=== PATIENT | female | born 1950 | race Caucasian/White ===

== ENCOUNTER 2020-08-02 11:15 | Outpatient (REF) | payer MEDICARE, SELFPAY ==
[2020-08-02 14:32] LABS: Alanine Aminotransferase 22 U/L (0-31); Albumin Level 4.3 g/dL (3.5-5.0); Alkaline Phosphatase 74 U/L (39-117); Anion Gap 16 (12-20); Aspartate Amino Transferase 17 U/L (5-31); Bilirubin Total 0.5 mg/dL (0.0-1.0); Blood Urea Nitrogen 15 mg/dL (9-16); Calcium 8.6 mg/dL (8.4-10.2); Carbon Dioxide 27 mmol/L (22-29); Chloride 103 mmol/L (96-108); Estimated Glomerular Filt Rate > 60; Glucose Random 163 mg/dL (60-115); Potassium 4.5 mmol/l (3.3-5.1); Sodium 141 mmol/L (135-145); Total Protein 6.8 g/dL (6.5-8.0)
[2020-08-02 15:25] LABS: Vitamin B12 665 pg/mL (200-900)
[2020-08-02 17:41] LABS: Estimated Average Glucose 177 mg/dL; Hemoglobin A1c % 7.8 %
== END 2020-08-02 11:16 | disposition home or self-care (01) ==
LOC: HO.HMGCLDS 11:15
PROVIDERS: PCP Internal Medicine; Visit Provider Internal Medicine
DX: E78.9 Disorder of lipoprotein metabolism, unspecified (principal); I10 Essential (primary) hypertension; E10.9 Type 1 diabetes mellitus without complications; E11.21 Type 2 diabetes mellitus with diabetic nephropathy; N28.9 Disorder of kidney and ureter, unspecified; G47.00 Insomnia, unspecified; F33.41 Major depressive disorder, recurrent, in partial remission
CPT/HCPCS: 80053; 82607; 83036

== ENCOUNTER 2020-09-11 09:17 | Outpatient (REF) | payer MEDICARE, SELFPAY ==
--- NOTE | 2020-09-11 09:24 | XR_ITS ---
EXAMINATION: XR HIP, RIGHT CLINICAL INFORMATION: Right hip pain. COMPARISON: 12/14/2018 TECHNIQUE: Two views of the right hip. Pelvis 1 view. FINDINGS: RIGHT HIP: Fnav-kt-uhlhehne right hip arthritis. No fracture or dislocation. Vascular calcification noted.. PELVIS: Agrl-ay-wsumypfa left hip arthritis. Mild bilateral SI joint arthritis and symphysis pubis arthritis. No acute pelvic fractures are seen. Prominent degenerative changes in the lower lumbar spine. Phleboliths in the pelvis. XR/XR hip RT w PEL1V IMPRESSION: Psvs-vs-bacrnbdj bilateral hip joint arthritis. Additional arthritic changes, as above. No acute osseous abnormality seen.
== END 2020-09-11 09:18 | disposition home or self-care (01) ==
LOC: HO.HOSX 09:17
PROVIDERS: PCP Internal Medicine; Visit Provider Orthopaedic Surgery
DX: M25.551 Pain in right hip (principal); M79.18 Myalgia, other site
CPT/HCPCS: 73502; 99212

== ENCOUNTER 2024-11-21 12:40 | Emergency (ER) | payer MEDICARE, SELFPAY ==
--- NOTE | ~2024-11-21 | CT_ITS ---
EXAMINATION: CT HEAD WITHOUT CONTRAST CLINICAL INFORMATION: Headache COMPARISON: None. Correlation made with MR brain 08/09/2019. TECHNIQUE: Contiguous axial imaging was performed from the skull base to vertex without intravenous administration of contrast. This CT examination was performed using dose optimization techniques as appropriate, variously including the following: *Automated exposure control *Adjustment of mA and/or kV according to patient size (this includes techniques or standardized protocols for targeted exams where dose is matched to indication/reason for exam; i.e. extremities or head) *Use of iterative reconstruction technique FINDINGS: There is no evidence of intracranial hemorrhage or extra-axial fluid collection. There is no mass effect, or edema. No CT evidence of acute territorial infarct. Ventricles, sulci, and cisterns are normal in size and configuration for patient age. No hydrocephalus. No midline shift. Negative hyperdense MCA sign. Negative insular ribbon sign. Patchy periventricular and deep white matter hypoattenuation is consistent with mild to moderate small vessel ischemic changes. 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 Normal pituitary. Mild atheromatous calcification of the bilateral carotid siphons. Globes and orbital contents image normally. There are bilateral lens implants. No extracranial soft tissue abnormalities. There is a right mastoid effusion. The paranasal sinuses, left mastoid air cells, and bilateral tympanic cavities are normally aerated. No suspicious bony abnormalities. There are no acute fractures evident. CT/CT head/brain wo IV con IMPRESSION: 1. No acute intracranial abnormality. 2. [id number] chronic white matter microvascular ischemic changes. 3. Right mastoid effusion. No evidence of middle ear involvement. Electronically signed by: Farzad Dillon MD 11/21/2024 03:04 PM [facility]
[2024-11-21 12:56] VITALS: BP 154/82; PULSE 89; O2SAT 98
[2024-11-21 12:57] VITALS: BP 148/67; PULSE 84; RESP 18; TEMP 36.9; O2SAT 98; BMI 28.0
--- NOTE | 2024-11-21 13:30 | ED_ITS ---
HPI - General Adult General Chief complaint: General Medical Stated complaint: PT STS FEELS WEIRD SOUNDS LIKE PEOPLE DRUMMING PER Time Seen by Provider: 11/21/24 13:33 Source: patient Limitations: no limitations History of Present Illness HPI narrative: This is a alexia 74 years old the patient presented to the emergency department complaining of ?hearing drumming in the head , she denies headache, she states she had the same problem before about 1 year ago. She has a history of diabetes denies any fever any vomiting. Symptoms lasted for about 5 minutes at this point she is back to baseline Onset (ago): hour(s) (2) Location: head Radiation: non-radiation Severity: moderate Quality: burning Pain Consistency: constant Relieving factors: none Exacerbating factors: none Related Data Home Medications ?Medication ?Instructions ?Recorded ?Confirmed blood sugar diagnostic (OneTouch #10 ea 08/02/20 08/18/20 Ultra Blue Test Strip) cyanocobalamin (vitamin B-12) 1,000 mcg PO DAILY 08/02/20 08/18/20 1,000 mcg tablet timolol 0.25 % eye drops 1 drp ophthalmic (eye) DAILY 08/02/20 08/18/20 donepezil 5 mg tablet 5 mg PO DAILY 08/17/20 08/18/20 Previous Rx's ?Medication ?Instructions ?Recorded zolpidem 10 mg tablet 10 mg PO BEDTIME PRN insomnia 30 09/18/20 days #30 tabs celecoxib 100 mg capsule 100 mg PO DAILY #90 caps 11/09/20 bupropion HCl 200 mg tablet,12 hr 200 mg PO QAM #90 tabs 11/28/20 sustained-release simvastatin 10 mg tablet 10 mg PO BEDTIME #90 tabs 11/28/20 tizanidine 2 mg tablet 2 mg PO BEDTIME PRN for muscle 12/25/20 spasm #30 tabs irbesartan 300 1 tab PO DAILY 30 days #30 tabs 01/03/21 mg-hydrochlorothiazide 12.5 mg tablet insulin glargine 100 unit/mL (3 50 unit (0.5 mL) subcut QPM 90 01/11/21 mL) subcutaneous pen (Lantus days #45 mL Solostar U-100 Insulin) metformin 1,000 mg tablet 1,000 mg PO BID #180 tabs 03/14/21 Allergies Allergy/AdvReac Type Severity Reaction Status Date / Time Sulfa (Sulfonamide Allergy Unknown HIVES Verified 11/21/24 13:08 Antibiotics) [SULFA (SULFONAMIDE ANTIBIOTICS)] Review of Systems 2 Constitutional: Constitutional: Reports no additional constitutional complaints Cardiovascular: Cardiovascular: Reports no additional cardiovascular complaints [facility] Past Medical History Attestation statement: The following information was validated with the patient. 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 Mother No problems noted. Son No problems noted. Son No problems noted. Social History Social History Alcohol intake: never Current occupational status: retired Current occupation: Right Handed Physical Exam ED Vital Signs: Vital Signs - 24 hr 11/21/24 12:57 11/21/24 14:40 11/21/24 15:58 Temperature 98.5 F 97.1 F 97.1 F Pulse Rate 84 82 82 Respiratory Rate 18 14 14 Blood Pressure 148/67 H 139/68 139/68 Pulse Oximetry 98 99 99 Oxygen Delivery Method Room Air Room Air Room Air BMI result Body Mass Index 28.0 No acute distress looks well Const General: cooperative, comfortable, no acute distress, well developed, awake and Physically active Nutritional Appearance: average body habitus Orientation/consciousness: patient oriented x3 Limitations: no limitations HENMT Head: Yes normal to inspection General nose exam: Normal external nose present Face and sinus: Yes normal facial exam Teeth and gingiva: dentition normal Neck Neck: Yes normal visual inspection Chest Chest palpation & inspection: normal inspection of the chest Resp Effort & Inspection: normal respiratory effort Auscultation: clear to auscultation bilaterally Cardio Jugular venous distension: no JVD Rate: regular rate Rhythm: regular rhythm GI Inspection: Yes normal to inspection Palpation (GI): Soft to palpation, not firm, nontender and no guarding Auscultation: normal bowel sounds Skin General skin exam: no rashes or lesions noted, elasticity normal and turgor normal Lesions: no lesions Rashes: no rashes Neuro General: patient oriented x3 Cranial nerves: Yes CN's II-XII intact bilaterally Motor exam (neuro): 5/5 motor strength present throughout Psych Appearance: grossly normal Course Reevaluation(s) Reevaluation #1: Patient is feeling better she is completely asymptomatic workup negative I think she can be discharged home she is comfortable with the plan I spoke also with the Time: 15:51 Medical Decision Making Medical Decision Making [facility] Narrative: Patient presented to the emergency department complaining hearing drum in the head symptoms are now gone we will check labs we will do imaging of the head Differential Diagnosis Differential Diagnoses: The differential diagnosis associated with the presentation includes Complicated migraine/headache/brain tumor Admission/Observation Consideration of admission/observation: Escalation of care including admission/observation considered Lab Data [facility] Lab Attestation statement: I reviewed the patient's lab results. 11/21/24 13:57 11/21/24 13:57 Labs: Lab Results 11/21/24 Range/Units 13:57 WBC 9.5 (4.8-10.8) X10*3/uL RBC 4.50 (4.20-5.50) X10*6/uL Hgb 14.4 (12.0-16.0) g/dl Hct 40.6 (37.0-47.0) % MCV 90.2 (80.0-98.0) fL MCH 32.0 (27.0-33.0) pg MCHC 35.5 H (31.0-35.0) g/dl RDW 11.9 (11.0-16.0) % Plt Count 293 (160-400) X10*3/uL MPV 9.0 L (9.4-12.3) fL Immature Gran % (Auto) 0.3 (0.0-0.4) % Neut % (Auto) 77.0 H (45-73) % Lymph % (Auto) 16.3 L (20-40) % [place] % (Auto) 4.7 (2-11) % Eos % (Auto) 1.3 (0-4) % Baso % (Auto) 0.4 (0-2) % Lymph # (Auto) 1.6 (1.2-4.9) X10*3/uL [place] # (Auto) 0.5 (0.1-1.2) X10*3/uL Eos # (Auto) 0.1 (0.0-0.4) X10*3/uL Baso # (Auto) 0.0 (0.0-0.2) X10*3/uL Abs Immat Gran (auto) 0.03 (0.00-0.03) X10*3/uL Absolute Neuts (auto) 7.3 (2.0-8.3) x10*3/uL Absolute Nucleated RBC 0.000 (0.0-0.012) X10*3/uL Nucleated RBC % (auto) 0.0 (0.0-0.2) /100WBC Sodium 141 (135-145) mmol/L Potassium 3.6 (3.3-5.1) mmol/L Chloride 109 H (96-108) mmol/L Carbon Dioxide 23 (22-29) mmol/L Anion Gap 13 (12-20) BUN 14 (9-16) mg/dL Creatinine 0.75 (0.5-1.4) mg/dL Estim Creat Clear Calc 56.9 Estimated GFR > 60 Random Glucose 101 (60-115) mg/dL Calcium 9.2 D (8.4-10.2) mg/dL Total Bilirubin 0.8 (0.0-1.0) mg/dL AST 25 (5-31) U/L ALT 36 H (0-31) U/L Alkaline Phosphatase 99 (39-117) U/L Troponin I High Sens 4.1 (<3.5-17.0) ng/L Total Protein 7.5 (6.5-8.0) g/dL Albumin 4.2 (3.5-5.0) g/dL Independent Interpretation I performed an independent interpretation of an: CT Scan Interpretation: Globes and orbital contents image normally. There are bilateral lens implants. No extracranial soft tissue abnormalities. There is a right mastoid effusion. The paranasal sinuses, left mastoid air cells, and bilateral tympanic cavities are normally aerated. No suspicious bony abnormalities. There are no acute fractures evident. CT/CT head/brain wo IV con IMPRESSION: 1. No acute intracranial abnormality. 2. Ofhw-zy-hjbvmwrw chronic white matter microvascular ischemic changes. 3. Right mastoid effusion. No evidence of middle ear involvement. Electronically signed by: Farzad Dillon MD 11/21/2024 03:04 PM [facility] Dictated By: Farzad Dillon MD Signed By: <Electronically sign Radiology Impression Discussion of test interpretation with radiology: I have reviewed the radiologist's reading. Discharge Plan Discharge Clinical Impression: Auditory disturbance Patient Disposition: Home, Self-Care Additional Instructions: Follow-up with your primary care physician, return to the emergency room if you worse any concern, you CT scan of the head was negative your Prescriptions: No Action zolpidem 10 mg tablet 10 mg PO BEDTIME PRN (Reason: insomnia) 30 Days Qty: 30 1RF celecoxib 100 mg capsule 100 mg PO DAILY Qty: 90 0RF bupropion HCl 200 mg tablet sustained-release 12 hr 200 mg PO QAM Qty: 90 0RF simvastatin 10 mg tablet 10 mg PO BEDTIME Qty: 90 0RF tizanidine 2 mg tablet 2 mg PO BEDTIME PRN (Reason: for muscle spasm) Qty: 30 0RF irbesartan-hydrochlorothiazide 300-12.5 mg tablet 1 tab PO DAILY 30 Days Qty: 30 0RF Lantus Solostar U-100 Insulin 100 unit/mL (3 mL) insulin pen 50 unit subcut QPM 90 Days Qty: 45 0RF Rx Instructions: inject 50 units every evening metformin 1,000 mg tablet 1,000 mg PO BID Qty: 180 0RF timolol 0.25 % drops 1 drp ophthalmic (eye) DAILY cyanocobalamin (vitamin B-12) 1,000 mcg tablet 1,000 mcg PO DAILY (DME) OneTouch Ultra Blue Test Strip Strip See Rx Instructions .ROUTE .MEDSUPPLY Qty: 10 Rx Instructions: As directed donepezil 5 mg tablet 5 mg PO DAILY Referrals: Anne Tanner MD [Primary Care Provider] - 2 days Interventions: ED Discharge Assessment Last Done: 11/21/24 15:58 Discharge Date/Time: 11/21/24 15:58 Print Language: Brazilian
--- NOTE | 2024-11-21 13:34 | ECG_ITS ---
Test Reason : chest pain Blood Pressure : */* mmHG Vent. Rate : 80 BPM Atrial Rate : 80 BPM P-R Int : 164 ms QRS Dur : 82 ms QT Int : 402 ms P-R-T Axes : 67 57 65 degrees QTcB Int : 463 ms Normal sinus rhythm Nonspecific T wave abnormality Abnormal ECG When compared with ECG of 29-Jun-2017 11:17, No significant change was found Referred By: William Aguilera Electronically Signed By: DIEGO ALMONTE
[2024-11-21 14:03] LABS: MANUAL DIFF FLAG NO
[2024-11-21 14:05] LABS: Basophils Percent Auto 0.4 % (0-2); Eosinophils Absolute Auto 0.1 X10*3/uL (0.0-0.4); Eosinophils Percent Auto 1.3 % (0-4); Hematocrit 40.6 % (37.0-47.0); Hemoglobin 14.4 g/dl (12.0-16.0); Imm Gran Abs Auto 0.03 X10*3/uL (0.00-0.03); Imm Gran Pct Auto 0.3 % (0.0-0.4); Lymphocytes Absolute Auto 1.6 X10*3/uL (1.2-4.9); Lymphocytes Percent Auto 16.3 % (20-40); Mean Corpuscular HGB Conc 35.5 g/dl (31.0-35.0); Mean Corpuscular Volume 90.2 fL (80.0-98.0); Monocytes Absolute Auto 0.5 X10*3/uL (0.1-1.2); Monocytes Percent Auto 4.7 % (2-11); Neutrophils Absolute Auto 7.3 x10*3/uL (2.0-8.3); Platelet Count 293 X10*3/uL (160-400); Red Cell Distribution Width 11.9 % (11.0-16.0); White Blood Count 9.5 X10*3/uL (4.8-10.8)
--- NOTE | 2024-11-21 14:08 | PC.NURSE ---
Dr. Aguilera at bedside speaking with patient. Labs drawn and sent for analysis. Awaiting results.
[2024-11-21 14:21] LABS: Alanine Aminotransferase 36 U/L (0-31); Albumin Level 4.2 g/dL (3.5-5.0); Alkaline Phosphatase 99 U/L (39-117); Anion Gap 13 (12-20); Aspartate Amino Transferase 25 U/L (5-31); Bilirubin Total 0.8 mg/dL (0.0-1.0); Blood Urea Nitrogen 14 mg/dL (9-16); Calcium 9.2 mg/dL (8.4-10.2); Carbon Dioxide 23 mmol/L (22-29); Chloride 109 mmol/L (96-108); Creatinine Clr Calc Pharmacy 56.9; Estimated Glomerular Filt Rate > 60; Glucose Random 101 mg/dL (60-115); Potassium 3.6 mmol/L (3.3-5.1); Sodium 141 mmol/L (135-145); Total Protein 7.5 g/dL (6.5-8.0)
[2024-11-21 14:25] LABS: Troponin-I High Sensitivity 4.1 ng/L (<3.5-17.0)
[2024-11-21 14:40] VITALS: BP 139/68; PULSE 82; RESP 14; TEMP 36.2; O2SAT 99
--- NOTE | 2024-11-21 14:40 | PC.NURSE ---
Patient returned from CT scan. Awaiting results. Family member at bedside.
--- OUTSIDE RECORDS SUMMARY | 2024-11-21 15:09 | XMS_ITS | Encounter Summary ---
Author Organization [employer] Address [address] [place] [address] Care Team Providers Care Tail Board Man Name Role Phone Anne Tanner MD Primary Care Provider [phone] Encounter Details Date Type Department Care Team (Late st Contact Info) Description 11/21/2024 Orders Only GENERIC EXTERNAL DATA DEPARTMENT Provider, Generic External Data Social History Tobacco Use Types Packs/Day Years Used Date Smoking Tobacco: Never Smokeless Tobacco: Never Alcohol Use Standard Drinks/Week Comments Never 0 (1 standard drink = 0.6 oz pur e alcohol) Depression Answer Date Recorded Patient Health Questionnaire-9 Score 12 06/05/2024 Patient Health Questionnaire-9 Score 12 06/05/2024 Last PHQ-9: Questionnaire Data Not on file 0 06/05/2024 Housing Stability Answer Date Recorded What is your housing situation today? I have hayley interiano 11/10/[address] you li ve. Do you have problems with any of the following? None of the above 11/10/2024 Food Insecurity Answer Date Recorded Within the past 12 months, y ou worried that your food would run out before you got money to buy more: Never True 11/10/2024 Within the past 12 months,th e food you bought just didn't last and you didn't have enough money to get more: Never True Transportation Answer Date Recorded In the past 12 months, has l ack of transportation kept you from medical appts, meetings, work or from getting things needed for daily living? No 11/10/2024 Utilities Answer Date Recorded In the past 12 months, has t he electric, gas, oil or water company threatened to shut off services in your home? No 11/10/2024 Depression Answer Date Recorded Patient Health Questionnaire-2 Score 4 06/05/2024 Internet Access Answer Date Recorded Internet Access Q1 Yes 11/10/2024 Internet Access Q2 Not on file 11/10/2024 Comments No Sex and Gender Information Value Date Recorded Sex Assigned at Female 07/28/2022 10:37 AM EDT Legal Sex Female 10:37 AM EDT Gender Identity Female 07/28/2022 10:37 AM EDT Sexual Orientation Straight 07/28/2022 10 :37 AM EDT documented as of this encounter Plan of Treatment Not on file documented as of this encounter Procedures Procedure Name Priority Date/Time Associated Diagnosis Comments CT HEAD WO CONTRAST Routine 11/21/2024 2:33 PM EST HIGH SENSITIVITY TROPONIN I Routine 11/21/2024 1:57 PM EST CBC WITH AUTO DIFFERENTIAL Routine 11/21/2024 1:57 PM EST COMPREHENSIVE METABOLIC PANEL Routine 11/21/2024 1:57 PM EST documented in this encounter Results * CT Head w/o Contrast (11/21/2024 2:33 PM EST) Anatomical Region Laterality Modality Head, Neck Computed Tomogra phy 11/21/2024 2:33 PM EST Narrative 11/21/2024 3:07 PM EST ? [facility] ?[address] ?[place] [address] ? CT Scan Report ? Signed ? Patient: Ty,Sofia ?MR#: [id number] ?? 491 ? : 1950 ?Acct:[id number] ? Age/Sex: 74 / F ?ADM Date: 02/24/25 ? Loc: HO.ED ? Attending Dr: ? Ordering Physician: Corvi,William MD ?? Date of Service: 11/21/24 ?? Procedure(s): CT head/brain wo IV con ?? Accession Number(s): [id number] ? cc: Anne Tanner MD; William Aguilera MD ? Report Number: ?? [id number]: Total DLP = ??652.00 mGy-cm ?? EXAMINATION: ?? CT HEAD WITHOUT CONTRAST ? CLINICAL INFORMATION: ?? Headache ? COMPARISON: ?? None. Correlation made with MR brain 08/09/2019. ? TECHNIQUE: ?? Contiguous axial imaging was performed from the skull base to vertex ?? without intravenous administration of contrast. ? This CT examination was performed using dose optimization techniques as ?? appropriate, variously including the following: ?? *Automated exposure control ?? *Adjustment of mA and/or kV according to patient size (this includes ?? techniques or standardized protocols for targeted exams where dose is ?? matched to indication/reason for exam; i.e. extremities or head) ?? *Use of iterative reconstruction technique ? FINDINGS: ?? There is no evidence of intracranial hemorrhage or extra-axial fluid ?? collection. ?? There is no mass effect, or edema. No CT evidence of acute territorial ?? infarct. ?? Ventricles, sulci, and cisterns are normal in size and configuration ?? for patient age. No hydrocephalus. No midline shift. ?? Negative hyperdense MCA sign. Negative insular ribbon sign. ? Patchy periventricular and deep white matter hypoattenuation is ?? consistent with mild to moderate small vessel ischemic changes. ?? 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 ?? Normal pituitary. ?? Mild atheromatous calcification of the bilateral carotid siphons. ? Globes and orbital contents image normally. There are bilateral lens ?? implants. ?? No extracranial soft tissue abnormalities. ? There is a right mastoid effusion. ?? The paranasal sinuses, left mastoid air cells, and bilateral tympanic ?? cavities are normally aerated. ?? No suspicious bony abnormalities. There are no acute fractures evident. ? CT/CT head/brain wo IV con ?? IMPRESSION: ?? 1. No acute intracranial abnormality. ?? 2. Cior-sx-xptjnexw chronic white matter microvascular ischemic changes. ?? 3. Right mastoid effusion. No evidence of middle ear involvement. ? Electronically signed by: ??Farzad Dillon MD ??11/21/2024 03:04 PM EST RP ? Dictated By: ?Farzad Dillon MD ? Signed By: ?<Electronically signed by Farzad Dillon MD in OV> ?11/21/24 1504 ? DD/ 1433 ? TD/TT: 11/21/24 1453 ? Decorating Supervisor: ? Procedure Note Donotuseinterpreter, Image - 11/21/[address] [address] [address] Scan Report Signed Patient: Kalia Ty#: [id number] : 9Acct:[id number] Age/Sex: 74 / FADM Date: 11/21/24 Loc: HO.ED Attending Dr: Ordering Physician: William Aguilera MD Date of Service: 11/21/24 Procedure(s): CT head/brain wo IV con Accession Number(s): [id number] cc: Anne Tanner MD; William Aguilera MD Report Number: [id number]: Total DLP = 652.00 mGy-cm EXAMINATION: CT HEAD WITHOUT CONTRAST CLINICAL INFORMATION: Headache COMPARISON: None. Correlation made with MR brain 08/09/2019. TECHNIQUE: Contiguous axial imaging was performed from the skull base to vertex without intravenous administration of contrast. This CT examination was performed using dose optimization techniques as appropriate, variously including the following: *Automated exposure control *Adjustment of mA and/or kV according to patient size (this includes techniques or standardized protocols for targeted exams where dose is matched to indication/reason for exam; i.e. extremities or head) *Use of iterative reconstruction technique FINDINGS: There is no evidence of intracranial hemorrhage or extra-axial fluid collection. There is no mass effect, or edema. No CT evidence of acute territorial infarct. Ventricles, sulci, and cisterns are normal in size and configuration for patient age. No hydrocephalus. No midline shift. Negative hyperdense MCA sign. Negative insular ribbon sign. Patchy periventricular and deep white matter hypoattenuation is consistent with mild to moderate small vessel ischemic changes. 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 Normal pituitary. Mild atheromatous calcification of the bilateral carotid siphons. Globes and orbital contents image normally. There are bilateral lens implants. No extracranial soft tissue abnormalities. There is a right mastoid effusion. The paranasal sinuses, left mastoid air cells, and bilateral tympanic cavities are normally aerated. No suspicious bony abnormalities. There are no acute fractures evident. CT/CT head/brain wo IV con IMPRESSION: 1. No acute intracranial abnormality. 2. Ektw-ro-qkvzqqzl chronic white matter microvascular ischemic changes. 3. Right mastoid effusion. No evidence of middle ear involvement. Electronically signed by: Farzad Dillon MD 11/21/2024 03:04 PM EST Dictated By: Farzad Dillon MD Signed By: <Electronically signed by Farzad Dillon MD in OV> 11/21/24 1504 DD/ 1433 TD/TT: 11/21/24 1453 Decorating Supervisor: [facility] External Provider IMG CT PROCEDURES Final Result * High Sensitivity Troponin I (11/21/2024 1:57 PM EST) [facility] TROPONIN I HIGH SENSITIVITY 4.1 <3.5 - 17.0 ng/L [facility] Comment:The Dey high sens itivity Troponin-I results should beused in conjunction with other diagnostic information suchas ECG, clinical observations and information, and patientsymptoms to aid in the diagnosis of MD. 11/21/2024 1:57 PM EST 11/21/2024 2:01 PM EST Generic External Data Provider LAB BLOOD ORDERAB LES Final Result [facility] [place] [address] [phone] * (ABNORMAL) Comprehensive Metabolic Panel (11/21/2024 1:57 PM EST) [facility] Sodium 141 135 - 145 mmol/L [facility] Potassium 3.6 3.3 - 5.1 mmol/L [facility] Chloride 109(H) 96 - 108 mmol/L [facility] Carbon Dioxide 23 22 - 29 mmol/L [facility] Anion Gap 13 12 - 20 [facility] Urea Nitrogen (BUN) 14 9 - 16 mg/dL [facility] Creatinine, Serum 0.75 0.5 - 1.4 mg/dL [facility] Creatinine Clr Calc Pharmacy 56.9 [facility] Comment:Provided height and weight: 154.94 cm,67.3 kg.eGFR (calculated from the MDRD study equation) and eCrCl(calculated from the Cockcroft-Gault equation) are based ondifferent parameters and may not yield comparable results.If eCrCl result is absurd, please check patient'sheight/weight. Estimated Glomerular Filt Rate >60 [facility] Comment:Chronic Kidney Disea se: Estimated GFR < 60 mL/min/1.06l0Efkkel Kidney Disease: Estimated GFR < 15 mL/min/1.73m2 Glucose 101 60 - 115 mg/dL [facility] Calcium 9.2 8.4 - 10.2 mg/dL [facility] Bilirubin, Total 0.8 0.0 - 1.0 mg/dL [facility] Aspartate Amino Transferase 25 5 - 31 U/L [facility] Alanine Aminotransferase 36(H) 0 - 31 U/L [facility] Total Protein 7.5 6.5 - 8.0 g/dL [facility] Albumin Level 4.2 3.5 - 5.0 g/dL [facility] Alkaline Phosphatase 99 39 - 117 U/L [facility] 11/21/2024 1:57 PM EST 11/21/2024 2:01 PM EST us Generic External Data Provider LAB BLOOD ORDERAB LES Final Result [facility] [address] [place], [place] [id number] [phone] * (ABNORMAL) CBC auto differential (11/21/2024 1:57 PM EST) White Blood Count 9.5 4.8 - 10.8 X10*3/uL [facility] Red Blood Count 4.50 4.20 - 5.50 X10*6/uL [facility] Hemoglobin 14.4 12.0 - 16.0 g/dl [facility] Hematocrit 40.6 37.0 - 47.0 % [facility] Mean Corpuscular Volume 90.2 80.0 - 98.0 fL [facility] Mean Corpuscular Hemoglobin 32.0 27.0 - 33.0 pg [facility] Mean Corpuscular HGB Conc 35.5(H) 31.0 - 35.0 g/dl [facility] Red Cell Distribution Width 11.9 11.0 - 16.0 % [facility] Platelet Count 293 160 - 400 X10*3/uL [facility] Mean Platelet Volume 9.0(L) 9.4 - 12.3 fL [facility] Neutrophils Percent Auto 77.0(H) 45 - 73 % [facility] Imm Gran Pct Auto 0.3 0.0 - 0.4 % [facility] Lymphocytes Percent Auto 16.3(L) 20 - 40 % [facility] Monocytes Percent Auto 4.7 2 - 11 % [facility] Eosinophils Percent Auto 1.3 0 - 4 % [facility] Basophils Percent Auto 0.4 0 - 2 % [facility] NRBC Pct Auto 0.0 0.0 - 0.2 /100WBC [facility] Neutrophils Absolute Auto 7.3 2.0 - 8.3 x10*3/uL [facility] Imm Gran Abs Auto 0.03 0.00 - 0.03 X10*3/uL [facility] Lymphocytes Absolute Auto 1.6 1.2 - 4.9 X10*3/uL [facility] Monocytes Absolute Auto 0.5 0.1 - 1.2 X10*3/uL [facility] Eosinophils Absolute Auto 0.1 0.0 - 0.4 X10*3/uL [facility] Basophils Absolute Auto 0.0 0.0 - 0.2 X10*3/uL [facility] NRBC Abs Auto 0.000 0.0 - 0.012 X10*3/uL [facility] 11/21/2024 1:57 PM EST 11/21/2024 2:01 PM EST us Generic External Data Provider LAB BLOOD ORDERAB LES Final Result Performing Organization Address City/State/[facility] Co de Phone Number [facility] [address] [place] [address] [phone] documented in this encounter Visit Diagnoses Not on filedocumented in this encounter Additional Health Concerns Assessment Noted Time PHQ-9 Depression Total Score: 12 024 11:39 AM EDT documented as of this encounter Care Teams Tail Board Man Relationship Specialty Start Date End Date Anne Tanner MD [address] [place] [phone] PCP - General Internal Medicine 11/27/20 documented as of this encounter
--- OUTSIDE RECORDS SUMMARY | 2024-11-21 15:09 | XMS_ITS | Encounter Summary ---
Author Organization [employer] Address [address] [facility] 7t [place] [address] Care Team Providers Care Ceiling Installer Name Role Phone Anne Tanner MD Primary Care Provider [phone] Reason for Visit * Reason Comments Med Refill Encounter Details Date Type Department Care Team ([facility] st Contact Info) Description 07/16/2023 Refill [facility] MED[facility]INE [address] [place], [place] [phone] Anne Tanner MD [address] [address] [place], [place] [phone] Social History Tobacco Use Types Packs/Day Years Used Date Smoking Tobacco: Never Smokeless Tobacco: Never Alcohol Use Standard Drinks/Week Comments Never 0 (1 standard drink = 0.6 oz pur e alcohol) Depression Answer Date Recorded Patient Health Questionnaire-9 Score 12 11/20/2022 Housing Stability Answer Date Recorded What is your housing situation today? I have hayley interiano 07/16/[address] you li ve. Do you have problems with any of the following? None of the above 07/16/2023 Food Insecurity Answer Date Recorded Within the past 12 months, y ou worried that your food would run out before you got money to buy more: Never True 07/16/2023 Within the past 12 months,th e food you bought just didn't last and you didn't have enough money to get more: Never True Transportation Answer Date Recorded In the past 12 months, has l ack of transportation kept you from medical appts, meetings, work or from getting things needed for daily living? No 07/16/2023 Utilities Answer Date Recorded In the past 12 months, has t he electric, gas, oil or water company threatened to shut off services in your home? No 07/16/2023 Depression Answer Date Recorded Patient Health Questionnaire-2 Score 6 11/20/2022 Comments Unknown Sex and Gender Information Value Date Recorded Sex Assigned at Female 07/28/2022 10:37 AM EDT Legal Sex Female 10:37 AM EDT Gender Identity Female 07/28/2022 10:37 AM EDT Sexual Orientation Straight 07/28/2022 10 :37 AM EDT documented as of this encounter Plan of Treatment Not on file documented as of this encounter Visit Diagnoses Not on filedocumented in this encounter Additional Health Concerns Assessment Noted Time PHQ-9 Depression Total Score: 12 023 11:34 AM EST documented as of this encounter Care Teams Ceiling Installer Relationship Specialty Start Date End Date Anne Tanner MD [address] [place] [address] PCP - General Internal Medicine 11/27/20 documented as of this encounter
--- OUTSIDE RECORDS SUMMARY | 2024-11-21 15:09 | XMS_ITS | Encounter Summary ---
Author Organization [employer] Address [address] [facility] 7t [place] [address] Care Team Providers Care Buyer Agent Name Role Phone Anne Tanner MD Primary Care Provider [phone] Encounter Details Date Type Department Care Team ([facility] st Contact Info) Description 05/06/2023 Orders Only [facility] CHC MED & PEDS [address] [place], [place] [phone] Anne Tanner MD [address] [place], [place] [phone] Type 2 diabetes mellitus without complication, without long-term current use of insulin ([facility]) (Primary Dx); Candidiasis Social History Tobacco Use Types Packs/Day Years Used Date Smoking Tobacco: Never Smokeless Tobacco: Never Alcohol Use Standard Drinks/Week Comments Never 0 (1 standard drink = 0.6 oz pur e alcohol) Depression Answer Date Recorded Patient Health Questionnaire-9 Score 12 11/20/2022 Depression Answer Date Recorded Patient Health Questionnaire-2 Score 6 11/20/2022 Comments Unknown Sex and Gender Information Value Date Recorded Sex Assigned at Female 07/28/2022 10:37 AM EDT Legal Sex Female 10:37 AM EDT Gender Identity Female 07/28/2022 10:37 AM EDT Sexual Orientation Straight 07/28/2022 10 :37 AM EDT COVID-19 Exposure Response Date Recorded In the last 10 days, have yo u been in contact with someone who was confirmed or suspected to have Coronavirus/COVID-19? No / Unsure 04/07/2023 9:59 AM EDT documented as of this encounter Plan of Treatment Not on file documented as of this encounter Visit Diagnoses Diagnosis Type 2 diabetes mellitus without complication, without long-term current use of insulin ([facility])- Primary Candidiasis documented in this encounter Additional Health Concerns Assessment Noted Time PHQ-9 Depression Total Score: 12 023 11:34 AM EST documented as of this encounter Care Teams Buyer Agent Relationship Specialty Start Date End Date Anne Tanner MD [address] [place] [address] PCP - General Internal Medicine 11/27/20 documented as of this encounter
--- OUTSIDE RECORDS SUMMARY | 2024-11-21 15:09 | XMS_ITS | Encounter Summary ---
Author Organization [employer] Address [address] [facility] 7t [place] [address] Care Team Providers Care Career Development Counselor Name Role Phone Anne Tanner MD Primary Care Provider [phone] Reason for Referral * Consultation (Routine) - Closed Specialty Diagnoses / Procedures Referred By Dylon juarez Referred To Contact Physical Therapy Diagnoses Localized osteoarthritis of right knee Anne Tanner MD [address] [place] [address] Phone: tel: fax: Physical Therapy, AT [address] [place] [address] Dr Freeman Terence [place] Phone: tel: fax: Referral ID Status Reason Start Date Expiration Date V isits Requested Visits Authorized [id number] Closed Specialty Services Required 11/10/2024 11/10/2025 1 1 Reason for Visit * Reason Comments Hypertension Diabetes Hyperlipidemia Encounter Details Date Type Department Care Team (Latest Contact Info) Description 11/10/2024 9:00 AM EST Office Visit [facility] CHC MED & PEDS [address] [place], [place] [phone] Anne Tanner MD [address] [place] [address] Localized osteoarthritis of right knee (Primary Dx); Type 2 diabetes mellitus without complication, without long-term current use of insulin (CMS/HCC); Type 2 diabetes mellitus without complication, without long-term current use of insulin (CMS/HCC); Closed trimalleolar fracture of right ankle with routine healing Social History Tobacco Use Types Packs/Day Years [...] is your housing situation today? I have haylye interiano 11/10/[address] you [...] AM EDT documented as of this encounter Last Filed Vital Signs Vital Sign Reading Time Taken Comments Blood Pressure 149/87 11/10/2024 9:30 AM EST Pulse 85 11/10/2024 9:30 AM EST Temperature 36.7 ??C (98.1 ??F) 11/10/2024 9:12 AM ES T Respiratory Rate 12 11/10/2024 9:12 AM EST Oxygen Saturation 98% 11/10/2024 9:12 AM EST Inhaled Oxygen Concentration - - Weight 66.7 kg (147 lb) 11/10/2024 9:12 AM EST Height 154.9 cm (5' 1 ) 11/10/2024 9:12 AM EST Body Mass Index 27.78 11/10/2024 9:12 AM EST documented in this encounter Progress Notes * Anne Tanner MD - 11/10/2024 9:00 AM EST Subjective Patient ID: Sofia Ty is a 74 y.o. female who presents for Hypertension, Diabetes, and Hyperlipidemia. HPI History of a fall in July 2024 downstairs at a wedding. This fall resulted in a right trimalleolar fracture dislocation. She is status post an open reduction and internal fixation of her fracturewithout posterior fixation, open reduction and internal fixation of the syndesmosis. Patient is now doing well. Currently receiving physical therapy. Denies any pain of the right ankle. Able to ambulate on it. Denies any episode of hypoglycemia since the last office visit. Compliant to her medication. History of hypertension. Blood pressure is well-controlled at home. No reported side effect from the current medication. Left Patient Active Problem List Diagnosis Depressive disorder Hypercholesterolemia Hypertensive disorder Insomnia Mild dementia ([facility]) Osteoarthritis Type 2 diabetes mellitus ([facility]) Current Outpatient Medications on File Prior to Visit Medication Sig Dispense Refill acetaminophen (Tylenol 8 Hour) 650 MG ER tablet Take 1 tablet by mouth if needed in the morning, atnoon, and at bedtime. Alcohol Swabs (Alcohol Prep) 70 % pads USE ONE THREE TIMES DAILY 100 each 11 aspirin 81 MG EC tablet Take 1 tablet by mouth 1 (one) time each day. Blood Glucose Monitoring Suppl (ONE TOUCH ULTRA 2) w/Device kit USE DIRECTED 1 kit 11 buPROPion SR (Wellbutrin SR) 200 MG 12 hr tablet TAKE ONE TABLET EVERY MORNING 30 tablet 11 calcium carbonate (Os-Aristeo) 1250 (500 Ca) MG tablet Take 1 tablet by mouth in the morning and at bedtime. celecoxib (CeleBREX) 200 MG capsule TAKE ONE CAPSULE EVERY MORNING 30 capsule 11 Cyanocobalamin [address] 1 tablet under the tongue 1 (one) time each day. donepezil (Aricept) 5 MG tablet TAKE ONE TABLET EVERY EVENING 30 tablet 11 fluconazole (Diflucan) 150 MG tablet Take 1 tablet (150 mg) by mouth 1 (one) time per week. 1 pill on day 1 and on pill on day 7 2 tablet 0 glipiZIDE (Glucotrol) 5 MG tablet TAKE THREE TO FOUR TABLETS ONCE DAILY BEFORE SUPPER AND ONE-HALF TABLET BEFORE SNACK 135 tablet 11 insulin glargine (Lantus SoloStar) 100 UNIT/ML pen INJECT 40 UNITS SUBCUTANEOUSLY AT BEDTIME 15 mL 11 irbesartan-hydroCHLOROthiazide (Avalide) 300-12.5 MG tablet TAKE ONE TABLET EVERY MORNING 30 [id number] Lancets (HeavyTouch Delica Plus [id number]) misc TEST BLOOD SUGAR TWICE DAILY 100 each 11 latanoprost (Xalatan) 0.005 % ophthalmic solution Administer 1 drop into affected eye(s) in the evening. Multiple Vitamin (Multi-Vitamin) tablet take 1 Tablet by Oral route once daily ondansetron (Zofran) 4 MG tablet Take 1 tablet by mouth every 8 (eight) hours. HeavyTouch Ultra Test test strip TEST BLOOD SUGAR TWICE DAILY 100 strip 11 pen needle 32G x 5 mm misc Inject under the skin if needed. Inject by injection route every day semaglutide (Ozempic) 2 MG/1.5ML solution pen-injector Inject 1 mg under the skin 1 (one) time per week. 2 each 12 simvastatin (Zocor) 10 MG tablet TAKE ONE TABLET EVERY EVENING 30 tablet 11 timolol (Betimol) 0.25 % ophthalmic solution Administer 1 drop into affected eye(s) every 12 (twelve) hours. tiZANidine (Zanaflex) 2 MG tablet Take 1 tablet by mouth 1 (one) time each day. Take 1 tablet by oral route every day as needed not to exceed 3 doses in 24 hours venlafaxine XR (Effexor XR) 150 MG 24 hr capsule TAKE ONE CAPSULE EVERY EVENING 30 capsule 11 zolpidem (Ambien) 10 MG tablet TAKE ONE TABLET EVERY NIGHT AT BEDTIME 30 tablet 2 [DISCONTINUED] zolpidem (Ambien) 10 MG tablet TAKE ONE TABLET EVERY NIGHT AT BEDTIME 30 tablet 2 No current facility-administered medications on file prior to visit. Allergies Allergen Reactions Sulfa Antibiotics Hives Review of Systems Constitutional: Negative for appetite change, chills and diaphoresis. HENT: Negative for congestion and dental problem. Eyes: Negative for pain, redness and itching. Respiratory: Negative for cough and choking. Cardiovascular: Negative for leg swelling. Gastrointestinal: Negative for anal bleeding and blood in stool. Musculoskeletal: Negative for back pain. Objective BP (!) 149/87 (BP Location: Left arm, Patient Position: Sitting, BP Cuff Size: Adult) Pulse 85 Temp 98.1 ??F (36.7 ??C) (Oral) Resp 12 Ht 5' 1 (1.549 m) Wt 147 lb (66.7 kg) SpO2 98% BMI 27.78 kg/m?? Physical Exam Constitutional: General: She is not in acute distress. Appearance: Normal appearance. She is not ill-appearing, toxic-appearing or diaphoretic. Cardiovascular: Rate and Rhythm: Normal rate. Pulses: Normal pulses. Heart sounds: No murmur heard. No friction rub. No gallop. Pulmonary: Effort: Pulmonary effort is normal. No respiratory distress. Breath sounds: No stridor. No wheezing. Abdominal: Palpations: Abdomen is soft. Neurological: General: No focal deficit present. Mental Status: She is alert. Psychiatric: Mood and Affect: Mood normal. Assessment/Plan Diagnoses and all orders for this visit: Localized osteoarthritis of right knee Comments: Physical therapy recommended Orders: - Diclofenac Sodium 1 % gel; To apply to the affected area 3 times a day - Referral to Physical Therapy; Future Type 2 diabetes mellitus without complication, without long-term current use of insulin ([facility]) Comments: Stable A1c 7.8 . no change in medication Patient encouraged to be more active Orders: - POCT A1C - POCT glucose manually resulted Type 2 diabetes mellitus without complication, without long-term current use of insulin ([facility]) Comments: On Lantus 20 units HS, Glipizide 5 mg W/ evening meals. Continue with Ozempic to 1 mg once a week. Orders: - POCT A1C - POCT glucose manually resulted Closed trimalleolar fracture of right ankle with routine healing Comments: Patient is doing well Pain is resolved Able to ambulate. Continue with physical therapy as recommended. documented in this encounter Plan of Treatment Scheduled Referrals Name Type Priority Associated Diagnoses Orde r Schedule Referral to Physical Therapy Outpatient Referral Routine Localized osteoarthritis of right knee Expected: 11/10/2024 (Approximate), Expires: 11/10/2025 documented as of this encounter Procedures Procedure Name Priority Date/Time Associated Diagnosis Comments POCT GLYCATED HEMOGLOBIN, TOTAL Routine 11/10/2024 9:16 AM EST Type 2 diabetes mellitus without complication, without long-term current use of insulin ([facility]) POCT GLUCOSE Routine 11/10/2024 9:13 AM EST Type 2 diabetes mellitus without complication, without long-term current use of insulin ([facility]) documented in this encounter Results * (ABNORMAL) POCT A1C (11/10/2024 9:16 AM EST) Hemoglobin A1C 7.8(A) 4.0 - 6.0 % QC Media Lot # Comment:[id number] Lot# Expiration Date Comment:07/15/2026 Blood 11/10/2024 9:16 AM EST Anne Tanner MD POINT OF CARE TEST ENTER/ED IT ORDERABLES Final Result * POCT glucose manually resulted (11/10/2024 9:13 AM EST) Glucose Blood, POC 120 60 - 200 mg/dL QC Media Lot # Comment:[id number] Lot# Expiration Date Comment:01/03/2025 Blood Capillary blood specimen / Unknown 11/10/2024 9:13 AM EST Anne Tanner MD POINT OF CARE TEST ENTER/ED IT ORDERABLES Final Result documented in this encounter Visit Diagnoses Diagnosis Localized osteoarthritis of right knee- Primary Type 2 diabetes mellitus without complication, without long-term current use of insulin ([facility]) Closed trimalleolar fracture of right ankle with routine healing documented in this encounter Additional Health Concerns Assessment Noted Time PHQ-9 Depression Total Score: 12 024 11:39 AM EDT documented as of this encounter Care Teams Career Development Counselor Relationship Specialty Start Date End Date Anne Tanner MD [address] [place] [id number] PCP - General Internal Medicine 11/27/20 documented as of this encounter
--- OUTSIDE RECORDS SUMMARY | 2024-11-21 15:09 | XMS_ITS | Encounter Summary ---
Author Organization [employer] Address [address] [facility] 7t [place] [address] Care Team Providers Care Internal Audit Manager Name Role Phone Anne Tanner MD Primary Care Provider [phone] Reason for Visit * Reason Onset Date Comments Reschedule 01/21/2024 Encounter Details Date Type Department Care Team ([facility] [place] Contact Info) Description 01/21/2024 Telephone [facility] CHC MED & PEDS [address] [place], [place] [phone] Anne Tanner MD [address] [place] [address] Reschedule Social History Tobacco Use Types Packs/Day Years [...] AM EDT documented as of this encounter Miscellaneous Notes * Telephone Encounter - Mary Nunez - 01/21/2024 10:37 AM EDT Tc from pt requesting to reschedule 01/20 follow up appointment. Adhesive Sprayer offered 03/01 but pt is requesting a sooner appointment. Please contact pt at [phone] documented in this encounter Plan of Treatment Not on file documented as of this encounter Visit Diagnoses Not on filedocumented in this encounter Additional Health Concerns Assessment Noted Time PHQ-9 Depression Total Score: 12 023 11:34 AM EST documented as of this encounter Care Teams Internal Audit Manager Relationship Specialty Start Date End Date Anne Tanner MD [address] [place] [id number] PCP - General Internal Medicine 11/27/20 documented as of this encounter
--- OUTSIDE RECORDS SUMMARY | 2024-11-21 15:09 | XMS_ITS | Encounter Summary ---
Author Organization [employer] Address [address] [facility] 7t [place] [address] Care Team Providers Care Product Controller Name Role Phone Anne Tanner MD Primary Care Provider [phone] Reason for Visit * Reason Onset Date Comments Lab Orders 09/29/2024 Encounter Details Date Type Department Care Team ([facility] st Contact Info) Description 09/29/2024 Telephone [facility] MEDICINE [address] [place], [place] [phone] Anne Tanner MD [address] [place], [place] [phone] Lab Orders Social History Tobacco Use Types Packs/Day Years [...] Recorded Patient Health Questionnaire-2 Score 4 06/05/2024 Comments No Sex and Gender Information Value Date Recorded Sex Assigned at Female 07/28/2022 10:37 AM EDT Legal Sex Female 10:37 AM EDT Gender Identity Female 07/28/2022 10:37 AM EDT Sexual Orientation Straight 07/28/2022 10 :37 AM EDT documented as of this encounter Miscellaneous Notes * Telephone Encounter - Saige Strickland RN - 09/29/2024 4:28 PM EST Noted pt has upcoming appt and order can be placed during visit. * Telephone Encounter - Timmy Rivas - 09/29/2024 3:28 PM EST Tc from prem from clinical quality at [facility] requesting a bone desity order because pt is passed due and pt had a broken bone. Perm said she will be faxing over a letter with more details. Fax number was given. Best number to reach prem: [phone] documented in this encounter Plan of Treatment Not on file documented as of this encounter Visit Diagnoses Not on filedocumented in this encounter Additional Health Concerns Assessment Noted Time PHQ-9 Depression Total Score: 12 024 11:39 AM EDT documented as of this encounter Care Teams Product Controller Relationship Specialty Start Date End Date Anne Tanner MD [address] [place] [address] PCP - General Internal Medicine 11/27/20 documented as of this encounter
--- OUTSIDE RECORDS SUMMARY | 2024-11-21 15:09 | XMS_ITS | Encounter Summary ---
Author Organization [employer] Address [address] [facility] 7t [place] [address] Care Team Providers Care Lead Carpenter Name Role Phone Anne Tanner MD Primary Care Provider [phone] Encounter Details Date Type Department Care Team ([facility] st Contact Info) Description 04/07/2023 Orders Only [facility] CHC MED & PEDS [address] [place], [place] [phone] Anne Tanner MD [address] [place], [place] [phone] Type 2 diabetes mellitus without complication, with long-term current use of insulin ([facility]) (Primary Dx) Social History Tobacco Use Types Packs/Day Years [...] Diagnosis Type 2 diabetes mellitus without complication, with long-term current use of insulin ([facility])- Primary documented in this encounter Additional Health Concerns Assessment Noted Time PHQ-9 Depression Total Score: 12 023 11:34 AM EST documented as of this encounter Care Teams Lead Carpenter Relationship Specialty Start Date End Date Anne Tanner MD [address] [place] [id number] PCP - General Internal Medicine 11/27/20 documented as of this encounter
--- OUTSIDE RECORDS SUMMARY | 2024-11-21 15:09 | XMS_ITS | Encounter Summary ---
Author Organization [employer] Address [address] [facility] 7t [place] [address] Care Team Providers Care Hotel Guest Service Agent Name Role Phone Anne Tanner MD Primary Care Provider [phone] Reason for Visit * Reason Comments Med Refill Encounter Details Date Type Department Care Team ([facility] Contact Info) Description 01/20/2024 Refill [facility] CHC MED & PEDS [address] [place], [place] [phone] Anne Tanner MD [address] [place] [address] Type 2 diabetes mellitus without complication, with long-term current use of insulin ([facility]) Social History Tobacco Use Types Packs/Day Years [...] complication, with long-term current use of insulin ([facility]) documented in this encounter Additional Health Concerns Assessment Noted Time PHQ-9 Depression Total Score: 12 023 11:34 AM EST documented as of this encounter Care Teams Hotel Guest Service Agent Relationship Specialty Start Date End Date Anne Tanner MD [address] [place] [id number] PCP - General Internal Medicine 11/27/20 documented as of this encounter
--- OUTSIDE RECORDS SUMMARY | 2024-11-21 15:09 | XMS_ITS | Encounter Summary ---
Author Organization [employer] Address [address] [place] [address] [place], [place] [address] Care Team Providers Care Spike Driver Name Role Phone Anne Tanner MD Primary Care Provider [phone] Reason for Referral * Consultation (Routine) - Closed Specialty Diagnoses / Procedures Referred By Dylon t Referred To Contact Nutrition Diagnoses Type 2 diabetes mellitus without complication, with long-term current use of insulin (CMS/HCC) Anne Tanner MD [address] [place] [address] Phone: tel: fax: Clarissa Piña, OTF [address] [place] [address] fax: Referral ID Status Reason Start Date Expiration Date V isits Requested Visits Authorized [id number] Closed Specialty Services Required 03/20/2023 03/19/2024 1 1 * Social Care Application (Routine) - Closed Specialty Diagnoses / Procedures [facility] Referred To Contact Nutrition - Diabetic Counseling / Nutrition Diagnoses Type 2 diabetes mellitus without complication, with long-term current use of insulin (CMS/HCC) Anne Tanner MD [address] [place] [address] Phone: tel: fax: Referral ID Status Reason Start Date Expiration Date V isits Requested Visits Authorized [id number] Closed Specialty Services Required 03/20/2023 09/16/2023 1 1 Encounter Details Date Type Department Care Team (Late st Contact Info) Description 03/20/2023 Orders Only [facility] CHC MED & PEDS [address] [place] [address] Anne Tanner MD [address] [place] [address] Type 2 diabetes mellitus without complication, with long-term current use of insulin (CMS/HCC) (Primary Dx) Social History Tobacco Use Types [...] as of this encounter Plan of Treatment Scheduled Referrals Name Type Priority Associated Diagnoses Order Schedule Referral to Diabetes Prevention Program Outpatient Referral Routine Type 2 diabetes mellitus without complication, with long-term current use of insulin (CMS/HCC) Ordered: 03/20/2023 Referral to Nutrition Services Outpatient Referral Routine Type 2 diabetes mellitus without complication, with long-term current use of insulin (CMS/HCC) Expected: 03/20/2023 (Approximate), Expires: 03/20/2024 documented as of this encounter Visit Diagnoses Diagnosis Type 2 diabetes mellitus without complication, with long-term current use of insulin (CMS/HCC)- Primary documented in this encounter Additional Health Concerns Assessment Noted Time PHQ-9 Depression Total Score: 12 023 11:34 AM EST documented as of this encounter Care Teams Spike Driver Relationship Specialty Start Date End Date Anne Tanner MD [address] [place] [address] PCP - General Internal Medicine 11/27/20 documented as of this encounter
--- OUTSIDE RECORDS SUMMARY | 2024-11-21 15:09 | XMS_ITS | Clinical Summary ---
Author Organization [employer] Address [address] [facility] [address] [place] [address] Care Team Providers Care Bilingual Teacher Name Role Phone Anne Tanner MD Primary Care Provider [phone] Allergies Active Allergy Reactions Criticality Noted Date Comments Sulfa Antibiotics Hives Low 11/27/2020 Medications * This document contains information received from the source organization and may not represent a complete record from that organization. tiZANidine (Zanaflex) 2 MG tablet Take 1 tablet by mouth 1 (one) time each day. Take 1 tablet by oral route every day as needed not to exceed 3 doses in 24 hours Active ondansetron (Zofran) 4 MG tablet Take 1 tablet by mouth every 8 (eight) hours. Active Multiple Vitamin (Multi-Vitamin) tablet take 1 Tablet by Oral route once daily Active Cyanocobalamin [address] 1 tablet under the tongue 1 (one) time each day. Active calcium carbonate (Os-Aristeo) 1250 (500 Ca) MG tablet Take 1 tablet by mouth in the morning and at bedtime. Active aspirin 81 MG EC tablet Take 1 tablet by mouth 1 (one) time each day. Active latanoprost (Xalatan) 0.005 % ophthalmic solution Administer 1 drop into affected eye(s) in the evening. Active timolol (Betimol) 0.25 % ophthalmic solution Administer 1 drop into affected eye(s) every 12 (twelve) hours. Active acetaminophen (Tylenol 8 Hour) 650 MG ER tablet Take 1 tablet by mouth if needed in the morning, at noon, and at bedtime. Active pen needle 32G x 5 mm misc Inject under the skin if needed. Inject by injection route every day Active fluconazole (Diflucan) 150 MG tabletIndications :Acute vaginitis Take 1 tablet (150 mg) by mouth 1 (one) time per week. 1 pill on day 1 and on pill on day 7 2 tablet Active Blood Glucose Monitoring Suppl (ONE TOUCH ULTRA 2) w/Device kitIndications:Ty pe 2 diabetes mellitus without complication, with long-term current use of insulin (CMS/HCC) USE DIRECTED 1 kit Active semaglutide (Ozempic) 2 MG/1.5ML solution pen-injectorIndic ations:Type 2 diabetes mellitus without complication, without long-term current use of insulin (CMS/HCC) Inject 1 mg under the skin 1 (one) time per week. 2 each 12 Active OneTouch Ultra Test test strip TEST BLOOD SUGAR TWICE DAILY 100 strip Active Lancets (OneTouch Delica Plus Uprral63M) misc TEST BLOOD SUGAR TWICE DAILY 100 each Active Alcohol Swabs (Alcohol Prep) 70 % pads USE ONE THREE TIMES DAILY 100 each Active insulin glargine (Lantus SoloStar) 100 UNIT/ML pen INJECT 40 UNITS SUBCUTANEOUSLY AT BEDTIME 15 mL Active buPROPion SR (Wellbutrin SR) 200 MG 12 hr tabletIndications :Depressive disorder TAKE ONE TABLET EVERY MORNING 30 tablet Active donepezil (Aricept) 5 MG tabletIndications :Unspecified dementia, unspecified severity, without behavioral disturbance, psychotic disturbance, mood disturbance, and anxiety (CMS/HCC) TAKE ONE TABLET EVERY EVENING 30 tablet Active irbesartan-hydroC HLOROthiazide (Avalide) 300-12.5 MG tabletIndications :Essential (primary) hypertension TAKE ONE TABLET EVERY MORNING 30 tablet Active glipiZIDE (Glucotrol) 5 MG tabletIndications :Type 2 diabetes mellitus without complication, without long-term current use of insulin (CMS/HCC) TAKE THREE TO FOUR TABLETS ONCE DAILY BEFORE SUPPER AND ONE-HALF TABLET BEFORE SNACK 135 tablet 11 Active venlafaxine XR (Effexor XR) 150 MG 24 hr capsuleIndication s:Depressive disorder TAKE ONE CAPSULE EVERY EVENING 30 capsule 11 024 Active celecoxib (CeleBREX) 200 MG capsule TAKE ONE CAPSULE EVERY MORNING 30 capsule 025 Active simvastatin (Zocor) 10 MG tablet TAKE ONE TABLET EVERY EVENING 30 tablet 025 Active zolpidem (Ambien) 10 MG tabletIndications :Other insomnia TAKE ONE TABLET EVERY NIGHT AT BEDTIME 30 tablet 2 025 Active Diclofenac Sodium 1 % gelIndications:Lo calized osteoarthritis of right knee To apply to the affected area 3 times a day 100 g 025 Active zolpidem (Ambien) 10 MG tabletIndications :Other insomnia TAKE ONE TABLET EVERY NIGHT AT BEDTIME 30 tablet 2 024 2024 Discontinued Active Problems Problem Noted Date Diagnosed Date Closed trimalleolar fracture of right ankle with routine healing 11/10/2024 Depressive disorder 11/27/2020 Assessment & Plan (06/06/2024 8:27 AM EDT): During IBH Consult Sofia presenting with depressed mood, Tearful, crying spells , loss of interests/pleasure , sense of isolation/loneliness , changes in sleep difficulty falling asleep, fatigue/loss of energy, difficulty concentrating, indecisiveness; for a period of 6-12 mo, for most or all symptoms in the context of family issues, financial concern, and relationship issues. Sofia presented with anhedonia sxs associated with marital and family issues. Lack of social support and sense of loneliness exacerbate her depression. She's currently taking medication prescribed by PCP to decrease sxs. Pt explored possibility to start talk therapy- today's encounter was the first time she discussed about mental health with a provider- pt felt comfortable and prefers to do follow-up with clinician for now. clinician engaged pt with active/reflective listening. Reviewed and assessed for risk, current stressors and protective factors. Discussed activities to incorporate in daily routine such as writing down her emotions and priorities in her marriage. Pt is aware of importance of reaching out to her children for support. Next appointment made for 10/01/24. Hypercholesterolemia 11/27/2020 Hypertensive disorder 11/27/2020 Insomnia 11/27/2020 Mild dementia 11/27/2020 Osteoarthritis 11/27/2020 Type 2 diabetes mellitus 11/27/2020 Encounters Date Type Department Care Team Description 11/21/2024 Orders Only GENERIC EXTERNAL DATA DEPARTMENT Provider, Generic External Data 11/10/2024 9:00 AM EST Office Visit [facility] [address] [place] [address] Anne Tanner MD Localized osteoarthritis of right knee (Primary Dx); Type 2 diabetes mellitus without complication, without long-term current use of insulin (CMS/HCC); Type 2 diabetes mellitus without complication, without long-term current use of insulin ([facility]); Closed trimalleolar fracture of right ankle with routine healing 11/10/2024 Travel 11/01/2024 Refill [facility] [address] [place] [address] Anne Tanner MD Other insomnia 10/07/2024 Refill [facility] [address] [place] [address] Anne Tanner MD 09/29/2024 Telephone [facility] [address] [place], [place] [phone] Anne Tanner MD Lab Orders 09/06/2024 Refill [facility] [address] [place] [address] Anne Tanner MD Depressive disorder from Last 3 Months Immunizations Name Administration Dates Next Due Influenza High-dose Quadriva lent Preservative Free 10/06/2022 Influenza Quadrivalent Adjuvanted 07/13/2020 Influenza injectable quadriv alent IIV4 with preservative 07/13/2018 Influenza injectable quadriv alent preservative free 08/26/2021 Influenza, High Dose Seasona l, Preservative Free 06/24/2019,07/22/2016,08/29/2015 Moderna Covid-19 Vaccine 12+ 08/26/2021,01/03/20 21,12/05/2020 Pneumococcal Conjugate PCV 20 10/06/2022 Pneumococcal Polysaccharide PPSV23 07/04/2014, TD (adult), 2 Lf tetanus tox oid, preservative free, adsorbed 04/05/2009 Tdap 05/09/2024 Zoster, Recombinant 06/13/2021,04/11/2021 Social History Tobacco Use Types Packs/Day Years Used Date Smoking Tobacco: Never Smokeless Tobacco: Never Tobacco Cessation:Counseling Given: Not Answered Alcohol Use Standard Drinks/Week Comments Never 0 [...] Orientation Straight 07/28/2022 10 :37 AM EDT Last Filed Vital Signs Vital Sign Reading [...] Mass Index 27.78 11/10/2024 9:12 AM EST Plan of Treatment Health Maintenance Due Date Last Done Comments CT Colonography 1950 Colonoscopy 1950 FIT 1950 FOBT 1950 Sigmoidoscopy 1950 Eye Exam 1959 Alcohol/Substance Use Screening 1961 Diabetes: Urine Protein Screening 1968 Lipid Panel 04/03/2023 04/03/2022 COVID-19 Vaccine ( season) 2024 08/26/2021, 01/02/2021, 12/05/2020 RSV Patients and Patients Aged 60 years or older (1 - 1-dose 75+ series) 2024 Depression Monitoring (PHQ-9) 12/03/2024 06/05/2024, 06/05/2024 Diabetes: Hemoglobin A1C 02/07/202511/10/ 025, 05/09/2024, 12/14/2023, Additional history exists Depression Screening 06/05/2025 06/05/2024, 06/05/20 24 Diabetes: Foot Exam 11/10/2025 11/10/2024, 02/04/2024, 02/04/2024, Additional history exists SDOH Screening 11/10/2025 11/10/2024 Tobacco Screening 11/10/2025 11/10/2024 Colorectal Cancer Screening 06/30/2027 FIT DNA/Cologuard 06/30/2027 06/30/2024 DTaP/Tdap/Td Vaccines (2 - Td or Tdap) 05/09/2034 05/09/2024, 04/05/2009 Zoster Vaccines Completed 06/13/2021, 04/11/2021 Hepatitis C Screening Completed 04/03/2022 Pneumococcal Vaccine: 50+ Years Completed 10/06/2022, 07/04/2014, 04/05/2009 Influenza Vaccine Completed 07/25/2024, , 10/06/2022, Additional history exists HIB Vaccines Aged Out No longer eligi ble based on patient's age to complete this topic HPV Vaccines Aged Out No longer eligi ble based on patient's age to complete this topic Hepatitis A Vaccines Aged Out No long er eligible based on patient's age to complete this topic Hepatitis B Vaccines Aged Out No long er eligible based on patient's age to complete this topic IPV Vaccines Aged Out No longer eligi ble based on patient's age to complete this topic Meningococcal Vaccine Aged Out No micheal gaurav eligible based on patient's age to complete this topic RSV under 20 months Aged Out No longe r eligible based on patient's age to complete this topic Rotavirus Vaccines Aged Out No longer eligible based on patient's age to complete this topic Procedures Procedure Name Priority Date/Time Associated Diagnosis Comments CT HEAD WO CONTRAST Routine 11/21/2024 2 :33 PM EST HIGH SENSITIVITY TROPONIN I Routine 11/21/2024 1:57 PM EST COMPREHENSIVE METABOLIC PANEL Routine 11/21/2024 1:57 PM EST CBC WITH AUTO DIFFERENTIAL Routine 11/21/2024 1:57 PM EST POCT GLYCATED HEMOGLOBIN, TOTAL Routine 11/10/2024 9:16 AM EST Type 2 diabetes mellitus without complication, without long-term current use of insulin (CMS/HCC) POCT GLUCOSE Routine 11/10/2024 9:13 AM EST Type 2 diabetes mellitus without complication, without long-term current use of insulin (CMS/HCC) LAB COLOGUARD?? COLON CANCER SCREEN Routine 06/30/2024 6:30 AM EDT Screening for colon cancer ZZZ HISTORICAL HEPATITIS C AB W/REFL TO HCV RNA, QN, PCR Routine 04/03/2022 11:56 AM EDT LIPID PANEL, STANDARD Routine 04/03/2022 11:56 AM EDT from Last 3 Months or Most Recently Relevant to Health Maintenance Results * CT Head w/o Contrast (11/21/2024 2:33 PM EST) Anatomical Region Laterality Modality Head, Neck Computed Tomogra phy 11/21/2024 2:33 PM EST Narrative 11/21/2024 3:07 PM EST ? [facility] ?[address] ?[place] [address] ? CT Scan Report ? Signed ? Patient: Ty,Sofia ?MR#: [id number] ?? 491 ? : 1950 ?Acct:[id number] ? Age/Sex: 74 / F ?ADM Date: 11/21/24 ? Loc: HO.ED ? Attending Dr: ? Ordering Physician: William Aguilera MD ?? Date of Service: 11/21/24 ?? Procedure(s): CT head/brain wo IV con ?? Accession Number(s): [id number] ? cc: Anne Tanner MD; William Aguilera MD ? Report Number: ?? [id number]: Total DLP = ??652.00 mGy-cm ?? EXAMINATION: [...] 1. No acute intracranial abnormality. ?? 2. Fwno-eh-tyggyntd chronic white matter microvascular ischemic changes. ?? 3. Right mastoid effusion. No evidence of middle ear involvement. ? Electronically signed by: ??Farzad Dillon MD ??11/21/2024 03:04 PM EST RP ? Dictated By: ?Farzad Dillon MD ? Signed By: ?<Electronically signed by Farzad Dillon MD in OV> ?11/21/24 1504 ? DD/ 1433 ? TD/TT: 11/21/24 1453 ? Nuclear Medicine Technician: ? Procedure Note Earlene, Image - 11/21/[address] [address] [address] Scan Report Signed Patient: Kalia Ty#: [id number] 491 : 9Acct:[id number] Age/Sex: 74 / FADM Date: 11/21/24 Loc: HO.ED Attending Dr: Ordering Physician: William Aguilera MD Date of Service: 11/21/24 Procedure(s): CT head/brain wo IV con Accession Number(s): [id number] cc: Anne Tanner MD; William Aguilera MD Report Number: [id number]: Total DLP = 652.00 mGy-cm EXAMINATION: CT [...] IMPRESSION: 1. No acute intracranial abnormality. 2. Kaek-vm-xfnzjjay chronic white matter microvascular ischemic changes. 3. Right mastoid effusion. No evidence of middle ear involvement. Electronically signed by: Farzad Dillon MD 11/21/2024 03:04 PM [facility] Dictated By: Farzad Dillon MD Signed By: <Electronically signed by Farzad Dillon MD in OV> 11/21/24 1504 DD/ 1433 TD/TT: 11/21/24 1453 Nuclear Medicine Technician: [facility] External Provider IMG CT PROCEDURES Final Result * High Sensitivity Troponin I (11/21/2024 1:57 PM EST) [facility] TROPONIN I HIGH SENSITIVITY 4.1 <3.5 - 17.0 ng/L [facility] Comment:The Dey high sens itivity Troponin-I results should beused in conjunction with other diagnostic information suchas ECG, clinical observations and information, and patientsymptoms to aid in the diagnosis of MN. 11/21/2024 1:57 PM EST 11/21/2024 2:01 PM EST Generic External Data Provider LAB BLOOD ORDERAB LES Final Result Performing Organization Address City/State/[facility] Co de Phone Number [facility] [address] [place] [phone] * (ABNORMAL) CBC auto differential (11/21/2024 1:57 PM EST) [facility] White Blood Count 9.5 4.8 - 10.8 X10*3/uL [facility] Red Blood Count 4.50 4.20 - 5.50 X10*6/uL [facility] Hemoglobin 14.4 12.0 - 16.0 g/dl [facility] Hematocrit 40.6 37.0 - 47.0 % [facility] Mean Corpuscular Volume 90.2 80.0 - 98.0 fL [facility] Mean Corpuscular Hemoglobin 32.0 27.0 - 33.0 pg [facility] Mean Corpuscular HGB Conc 35.5(H) 31.0 - 35.0 g/dl [facility] Red Cell Distribution Width 11.9 11.0 - 16.0 % [facility] Platelet Count 293 160 - 400 X10*3/uL [facility] Mean Platelet Volume 9.0(L) 9.4 - 12.3 fL [facility] Neutrophils Percent Auto 77.0(H) 45 - 73 % [facility] Imm Gran Pct Auto 0.3 0.0 - 0.4 % [facility] Lymphocytes Percent Auto 16.3(L) 20 - 40 % [facility] Monocytes Percent Auto 4.7 2 - 11 % [facility] Eosinophils Percent Auto 1.3 0 - 4 % [facility] Basophils Percent Auto 0.4 0 - 2 % [facility] NRBC Pct Auto 0.0 0.0 - 0.2 /100WBC [facility] Neutrophils Absolute Auto 7.3 2.0 - 8.3 x10*3/uL [facility] Imm Gran Abs Auto 0.03 0.00 - 0.03 X10*3/uL [facility] Lymphocytes Absolute Auto 1.6 1.2 - 4.9 X10*3/uL [facility] Monocytes Absolute Auto 0.5 0.1 - 1.2 X10*3/uL [facility] Eosinophils Absolute Auto 0.1 0.0 - 0.4 X10*3/uL [facility] Basophils Absolute Auto 0.0 0.0 - 0.2 X10*3/uL [facility] NRBC Abs Auto 0.000 0.0 - 0.012 X10*3/uL [facility] 11/21/2024 1:57 PM EST 11/21/2024 2:01 PM EST us Generic External Data Provider LAB BLOOD ORDERAB LES Final Result [facility] [address] [place] [phone] * (ABNORMAL) Comprehensive Metabolic Panel (11/21/2024 1:57 PM EST) Sodium 141 135 - 145 mmol/L [facility] Potassium 3.6 3.3 - 5.1 mmol/L [facility] Chloride 109(H) 96 - 108 mmol/L [facility] Carbon Dioxide 23 22 - 29 mmol/L [facility] Anion Gap 13 12 - 20 [facility] Urea Nitrogen (BUN) 14 9 - 16 mg/dL [facility] Creatinine, Serum 0.75 0.5 - 1.4 mg/dL [facility] Creatinine Clr Calc Pharmacy 56.9 [facility] Comment:Provided height and weight: 154.94 cm,67.3 kg.eGFR (calculated from the MDRD study equation) and eCrCl(calculated from the Cockcroft-Gault equation) are based ondifferent parameters and may not yield comparable results.If eCrCl result is absurd, please check patient'sheight/weight. Estimated Glomerular Filt Rate >60 [facility] Comment:Chronic Kidney Disea se: Estimated GFR < 60 mL/min/1.17n6Csefnn Kidney Disease: Estimated GFR < 15 mL/min/1.73m2 Glucose 101 60 - 115 mg/dL [facility] Calcium 9.2 8.4 - 10.2 mg/dL [facility] Bilirubin, Total 0.8 0.0 - 1.0 mg/dL [facility] Aspartate Amino Transferase 25 5 - 31 U/L [facility] Alanine Aminotransferase 36(H) 0 - 31 U/L [facility] Total Protein 7.5 6.5 - 8.0 g/dL [facility] Albumin Level 4.2 3.5 - 5.0 g/dL [facility] Alkaline Phosphatase 99 39 - 117 U/L [facility] 11/21/2024 1:57 PM EST 11/21/2024 2:01 PM EST us Generic External Data Provider LAB BLOOD ORDERAB LES Final Result [facility] [address] [place] [phone] * (ABNORMAL) POCT A1C (11/10/2024 9:16 AM EST) Hemoglobin A1C 7.8(A) 4.0 - 6.0 % QC Media Lot # Comment:[id number] Lot# Expiration Date Comment:07/15/2026 Blood 11/10/2024 9:16 AM EST us Anne Tanner MD POINT OF CARE TEST ENTER/ED IT ORDERABLES Final Result * POCT glucose manually resulted (11/10/2024 9:13 AM EST) Glucose Blood, POC 120 60 - 200 mg/dL QC Media Lot # Comment:[id number] Lot# Expiration Date Comment:01/03/2025 Blood Capillary blood specimen / Unknown 11/10/2024 9:13 AM EST us Anne Tanner MD POINT OF CARE TEST ENTER/ED IT ORDERABLES Final Result * Cologuard?? colon cancer screening (06/30/2024 6:30 AM EDT) Cologuard Result Negative Negative 07/06/20 24 8:38 PM EDT [employer] (CLIA #:[id number]) Comment: NEGATIVE TEST RESULT. A negative Cologuard result indicates a low likelihood that a colorectal cancer (CRC) or advanced adenoma (adenomatous polyps with more advanced pre-malignant features) ??is present. The chance that a person with a negative Cologuard test has a colorectal cancer is less than 1 in 1500 (negative predictive value >99.9%) or has an ??advanced adenoma is less than ??5.3% (negative predictive value 94.7%). These data are based on a prospective cross-sectional study of 10,000 individuals at average risk for colorectal cancer who were screened with both Cologuard and colonoscopy. (Gerard Fontana al, N Engl J Med 2014;370(14):1286- 1297) The normal value (reference range) for this assay is negative. COLOGUARD RE-SCREENING RECOMMENDATION: Periodic colorectal cancer screening is an important part of preventive healthcare for asymptomatic individuals at average risk for colorectal cancer. ??Following a negative Cologuard result, the [place] [employer] and U.S. Multi-Society Task Force screening guidelines recommend a Cologuard re-screening interval of 3 years. References: [place] [employer] Guideline for Colorectal Cancer Screening: https://www.cancer.org/cancer/pjgza-rbavwr-udlnyr/avzrtayis-rycpfslul-tbqdwpe/ac s-rec ommendations.html.; Joon DK, Chalino CR, Veronica SawyerK, Colorectal Cancer Screening: Recommendations for Physicians and Patients from the U.S. Multi-Society Task Force on Colorectal Cancer Screening , Am J Gastroenterology 2017; 112:3102-3759. TEST DESCRIPTION: Composite algorithmic analysis of stool DNA-biomarkers with hemoglobin immunoassay. ?? Quantitative values of individual biomarkers are not reportable and are not associated with individual biomarker result reference ranges. Cologuard is intended for colorectal cancer screening of adults of either sex, 45 years or older, who are at average-risk for colorectal cancer (CRC). Cologuard has been approved for use by the U.S. FDA. The performance of Cologuard was established in a cross sectional study of average-risk adults aged 50-84. Cologuard performance in patients ages 45 to 49 years was estimated by sub-group analysis of near-age groups. Colonoscopies performed for a positive result may find as the most clinically significant lesion: colorectal cancer [4.0%], advanced adenoma (including sessile serrated polyps greater than or equal to 1cm diameter) [20%] or non- advanced adenoma [31%]; or no colorectal neoplasia [45%]. These estimates are derived from a prospective cross-sectional screening study of 10,000 individuals at average risk for colorectal cancer who were screened with both Cologuard and colonoscopy. (Gerard Fontana al, N Engl J Med 2014;370(14):5917-6019.) Cologuard may produce a false negative or false positive result (no colorectal cancer or precancerous polyp present at colonoscopy follow up). A negative Cologuard test result does not guarantee the absence of CRC or advanced adenoma (pre-cancer). The current Cologuard screening interval is every 3 years. ([place] [employer] and U.S. Multi-Society Task Force). Cologuard performance data in a 10,000 patient pivotal study using colonoscopy as the reference method can be accessed at the following location: www.[employer]/results. Additional description of the Cologuard test process, warnings and precautions can be found at www.[employer]. Stool specimen (specimen) 06/30/2024 6:30 AM EDT 07/01/2024 1:20 PM EDT us Anne Tanner MD LAB MOLECULAR DIAGNOSTICS O RDERABLES Final Result Performing Organization Address City/[facility]/ZIP Co de Phone Number [employer] (CLIA #:[id number]) [address] [place] [address], * HEPATITIS C AB W/REFL TO HCV RNA, QN, PCR (04/03/2022 11:56 AM EDT) HEPATITIS C ANTIBODY NON-REACT JOVANNI NON-REACT JOVANNI [facility] INDEX 0.06 <1.00 [facility] Comment: ?? HCV antibody was non-reactive. There is no laboratory ?? evidence of HCV infection. ?? In most cases, no further action is required. However, if recent HCV exposure is suspected, a test for HCV RNA (test code 60982) is suggested. ?? For additional information please refer to http://education.[employer]/faq/CID67m5 (This link is being provided for informational/ educational purposes only.) ?? 04/03/2022 11:5 6 AM EDT us Anne Tanner MD HISTORICAL/NON ORDERABLE LA BS Final Result Performing Organization Address [facility] Co de Phone Number [facility] [address] * LIPID PANEL, STANDARD (04/03/2022 11:56 AM EDT) Chol/HDLC Ratio 2.5 <5.0 (calc) [facility] Cholesterol, Total 144 <200 mg/dL [facility] HDL Cholesterol 58 > OR = 50 mg/dL [facility] LDL Cholesterol 67 mg/dL (calc) [facility] Comment: Reference range: <100 ?? Desirable range <100 mg/dL for primary prevention; ?? <70 mg/dL for patients with CHD or diabetic patients ?? with > or = 2 CHD risk factors. ?? LDL-C is now calculated using the Kellie ?? calculation, which is a validated novel method providing ?? better accuracy than the Friedewald equation in the ?? estimation of LDL-C. ?? Javier JEWELL et al. YUE. 2013;310(19): 0164-6379 ?? (http://[employer]/faq/VBW291) Non-HDL Cholesterol 86 <130 mg/dL (calc) [facility] Comment: For patients with diabetes plus 1 major ASCVD risk ?? factor, treating to a non-HDL-C goal of <100 mg/dL ?? (LDL-C of <70 mg/dL) is considered a therapeutic ?? option. Triglycerides 111 <150 mg/dL [facility] 04/03/2022 11:5 6 AM EDT us Anne Tanner MD LAB BLOOD ORDERABLES Final Result [facility] [address] from Last 3 Months or Most Recently Relevant to Health Maintenance Insurance [facility]IC[facility] REPLACEMENT Care Teams Bilingual Teacher Relationship Specialty Start Date End Date Anne Tanner MD [address] [place] [address] [place] [phone] PCP - General Internal Medicine 11/27/20
--- OUTSIDE RECORDS SUMMARY | 2024-11-21 15:09 | XMS_ITS | Encounter Summary ---
Author Organization [employer] Address [address] [facility] [address] [place] [address] Care Team Providers Care Stockholder Name Role Phone Anne Tanner MD Primary Care Provider [phone] Reason for Visit * Reason Comments Med Refill Encounter Details Date Type Department Care Team ([facility] Contact Info) Description 11/01/2024 Refill [facility] MED & PEDS [address] [place], [place] [phone] Anne Tanner MD [address] [place] [address] Other insomnia Social History Tobacco Use Types Packs/Day Years [...] as of this encounter Visit Diagnoses Diagnosis Other insomnia documented in this encounter Additional Health Concerns Assessment Noted Time PHQ-9 Depression Total Score: 12 024 11:39 AM EDT documented as of this encounter Care Teams Stockholder Relationship Specialty Start Date End Date Anne Tanner MD [address] [place] [phone] PCP - General Internal Medicine 11/27/20 documented as of this encounter
--- OUTSIDE RECORDS SUMMARY | 2024-11-21 15:09 | XMS_ITS | Encounter Summary ---
Author Organization [employer] Address [address] [place] [address] Care Team Providers Care Tool Lapper Hand Name Role Phone Anne Tanner MD Primary Care Provider [phone] Encounter Details Date Type Department Care Team (Latest Contact Info) Description 11/10/2024 Travel Social History Tobacco Use Types Packs/Day Years [...] documented as of this encounter Care Teams Tool Lapper Hand Relationship Specialty Start Date End Date Anne Tanner MD [address] [place] [address] PCP - General Internal Medicine 11/27/20 documented as of this encounter
--- OUTSIDE RECORDS SUMMARY | 2024-11-21 15:09 | XMS_ITS | Encounter Summary ---
Author Organization [employer] Address [address] [facility] [address] [place] [address] Care Team Providers Care Pet Walker Name Role Phone Anne Tanner MD Primary Care Provider [phone] Reason for Visit * Reason Onset Date Comments Appointment Request 12/02/2023 Encounter Details Date Type Department Care Team ([facility] st Contact Info) Description 12/02/2023 Telephone [facility] MEDICINE [address] [place], [place] [phone] Anne Tanner MD [address] [place], [place] [phone] Appointment Request Social History Tobacco Use Types Packs/Day Years [...] encounter Miscellaneous Notes * Telephone Encounter - Wing Chay RN - 12/11/2023 9:54 AM EDT Tc to pt regarding rescheduling appt. Scheduled appt with PCP for 12/13 at 1:40 pm. Pt verbalizes understanding and agreement with plan. * Telephone Encounter - Abundio Reed - 12/11/2023 9:42 AM EDT Tc from pt calling in regards to message prior, would like to reschedule Same day visit 12/01, Please contact pt at [phone]. * Telephone Encounter - Wing Chay RN - 12/03/2023 10:55 AM EST Tc to pt regarding rescheduling appt. Unable to reach pt. Left message for pt to call back. * Telephone Encounter - Isac Johnson - 12/02/2023 12:49 PM EST Tc from patient calling to cancel appt due to a family emergency and would like a call back to reschedule documented in this encounter Plan of Treatment Not on file documented as of this encounter Visit Diagnoses Not on filedocumented in this encounter Additional Health Concerns Assessment Noted Time PHQ-9 Depression Total Score: 12 023 11:34 AM EST documented as of this encounter Care Teams Pet Walker Relationship Specialty Start Date End Date Anne Tanner MD [address] [place] [phone] PCP - General Internal Medicine 11/27/20 documented as of this encounter
[2024-11-21 15:58] VITALS: BP 139/68; PULSE 82; RESP 14; TEMP 36.2; O2SAT 99
== END 2024-11-21 15:58 | disposition home or self-care (01) ==
PROVIDERS: Emergency Provider Emergency Medicine; PCP Internal Medicine
DX: R44.0 Auditory hallucinations (principal); R07.89 Other chest pain; R94.31 Abnormal electrocardiogram [ECG] [EKG]; E13.9 Other specified diabetes mellitus without complications; Z79.899 Other long term (current) drug therapy; Z79.4 Long term (current) use of insulin
CPT/HCPCS: 36415; 70450; 80053; 84484; 85025; 93005; 99284

== ENCOUNTER → 2024-11-21 13:34 | Outpatient (BNV) | payer MEDICARE, SELFPAY | PROVIDERS: Emergency Provider Emergency Medicine; PCP Internal Medicine; Visit Provider Radiology Diagnostic Radiology | DX: R51.9 Headache, unspecified (principal); H74.8X1 Other specified disorders of right middle ear and mastoid; I67.82 Cerebral ischemia | CPT/HCPCS: 70450 ==

== ENCOUNTER → 2024-11-21 13:34 | Outpatient (BNV) | payer MEDICARE, SELFPAY | PROVIDERS: Emergency Provider Emergency Medicine; PCP Internal Medicine; Visit Provider Internal Medicine | DX: R07.9 Chest pain, unspecified (principal); R94.31 Abnormal electrocardiogram [ECG] [EKG] | CPT/HCPCS: 93010 ==